=== PATIENT | male | born 1970 | race African-American/Black ===

== ENCOUNTER 2021-02-25 10:42 | Emergency (ER) | payer SELFPAY ==
[2021-02-25] MEDS ORDERED: Lisinopril 10 MG TAB ONE (11:34)
== END 2021-02-25 11:36 | disposition home or self-care (01) ==
LOC: MADERS 10:42
DX: I10 Essential (primary) hypertension (principal); F17.290 Nicotine dependence, other tobacco product, uncomplicated
CPT/HCPCS: 99283

== ENCOUNTER 2022-05-11 11:16 | Emergency (ER) | payer SELFPAY | END 2022-05-11 12:20 | disposition home or self-care (01) | LOC: MADERS 11:16 | DX: I10 Essential (primary) hypertension (principal); R29.700 NIHSS score 0; F17.210 Nicotine dependence, cigarettes, uncomplicated | CPT/HCPCS: 99283 ==

== ENCOUNTER 2022-06-29 10:24 | Emergency (ER) | payer BC, SELFPAY ==
[2022-06-29] MEDS ORDERED: Hydrochlorothiazide 25 MG TAB ONE (10:40)
[2022-06-29] MEDS ORDERED: Aspirin 325 MG TAB ONE (10:40)
[2022-06-29] MEDS ORDERED: Lisinopril 10 MG TAB ONE (10:40)
[2022-06-29 11:00] LABS: #Basophils 0.1 thou/uL (0.0-0.2); #Lymphocytes 1.7 thou/uL (1.20-3.40); #Monocytes 0.8 thou/uL (0.11-0.59); #Neutrophils 3.8 thou/uL (1.40-6.50); %Basophils 1.1 % (0.0-1.0); %Eosinophils 0.8 % (0.0-10.0); %Lymphocytes 26.2 % (21.0-51.0); %Monocytes 12.3 % (0.0-10.0); %Neutrophils 59.6 % (42.0-75.0); Anisocytosis SLIGHT = 6-15 cells (100X) (0-5/hpf); Hemoglobin 14.5 g/dL (14.0-18.0); MDiff Complete? YES; Mean Corpuscular HGB CONC 29.3 g/dL (32.0-36.0); Mean Corpuscular Volume 85.3 fL (78.0-98.0); Mean Platelet Volume 11.8 fL (7.4-10.4); Platelet Count 192 thou/uL (130-400); Platelet Morphology Comment Appears Adequate; RBC Distribution Width 14.8 % (11.5-14.5); RBC Morphology 1; Red Blood Cell (RBC) Count 5.81 mill/uL (4.70-6.10); White Blood Cell (WBC) Count 6.4 thou/uL (4.8-10.8)
[2022-06-29 11:06] LABS: ALT (SGPT) 32 U/L (8-55); AST (SGOT) 26 U/L (5-34); Albumin 3.8 g/dL (3.5-5.0); Alkaline Phosphatase 66 U/L (40-110); Anion Gap 16 mmol/L (10-20); BUN (Urea Nitrogen) 11 mg/dL (8.4-25.7); Calc. Creatinine Clearance 0 mL/min (70-130); Calcium 9.5 mg/dL (7.8-10.44); Carbon Dioxide 27 mmol/L (22-29); Chloride 104 mmol/L (98-107); Estimated GFR 76; Globulin 3.7 g/dL (2.4-3.5); Glucose 140 mg/dL (70-105); Magnesium 1.8 mg/dL (1.6-2.6); Potassium 4.5 mmol/L (3.5-5.1); Protein, Total 7.5 g/dL (6.0-8.3); Sodium 142 mmol/L (136-145)
[2022-06-29 11:08] LABS: Acetaminophen Less than 10.0 mcg/mL (10.0-30.0); Alcohol Less than 10 mg/dL (Less than 10); Lipase 63 U/L (8-78); Salicylate Less than 8.0 mg/dL (15.0-30.0)
[2022-06-29 11:22] LABS: CKMB 2.7 ng/mL (0-6.6)
[2022-06-29] MEDS ORDERED: Furosemide 40 MG/4 ML VIAL ONE (11:43)
[2022-06-29 12:20] LABS: Amphetamine Not Detected (NotDetected); Barbiturates Screen Not Detected (NotDetected); Benzodiazepine Screen Not Detected (NotDetected); Cocaine Metabolite Screen Detected (NotDetected); Medtox Control Line Valid? VALID (VALID); Methadone Not Detected (NotDetected); Methamphetamine Not Detected (NotDetected); Opiate Screen Not Detected (NotDetected); Oxycodone Screen Not Detected (NotDetected); Phencyclidine (PCP) Not Detected (NotDetected); THC/Cannabinoid Screen Not Detected (NotDetected); Tricyclic Screen Not Detected (NotDetected)
== END 2022-06-29 15:18 | disposition short-term general hospital (02) ==
LOC: MADERS 10:24
DX: I11.0 Hypertensive heart disease with heart failure (principal); I50.9 Heart failure, unspecified; F14.10 Cocaine abuse, uncomplicated; R77.8 Other specified abnormalities of plasma proteins; F17.210 Nicotine dependence, cigarettes, uncomplicated; Z91.14 Patient's other noncompliance with medication regimen
CPT/HCPCS: 36415; 71045; 80053; 80306; 80307; 82553; 83690; 83735; 83880; 84484; 85025; 93005; 96374; J1940

== ENCOUNTER 2025-10-08 09:43 | Emergency (ER) | payer SELFPAY | END 2025-10-08 10:24 | disposition home or self-care (01) | LOC: MADERS 09:43 | DX: S39.012A Strain of muscle, fascia and tendon of lower back, initial encounter (principal); I10 Essential (primary) hypertension; X50.1XXA Overexertion from prolonged static or awkward postures, initial encounter; Z87.891 Personal history of nicotine dependence | CPT/HCPCS: 99283 ==